=== PATIENT | male | born 2000 | race Caucasian/White ===

== ENCOUNTER 2025-05-16 15:24 | Emergency (ER) | payer OTHER, SELFPAY ==
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
[2025-05-16 15:41] VITALS: BP 154/75; PULSE 68; RESP 18; TEMP 37.3; O2SAT 100
== END 2025-05-16 16:00 | disposition home or self-care (01) ==
PROVIDERS: Emergency Provider Nurse Practitioner
DX: T24.231A Burn of second degree of right lower leg, initial encounter (principal); W29.2XXA Contact with other powered household machinery, initial encounter; E10.9 Type 1 diabetes mellitus without complications; Z79.4 Long term (current) use of insulin; Z79.85 Long-term (current) use of injectable non-insulin antidiabetic drugs; J45.909 Unspecified asthma, uncomplicated
CPT/HCPCS: 82948; 99213; G0463